=== PATIENT | male | born 1975 | race Caucasian/White ===

== ENCOUNTER → 2023-07-31 | Emergency (ER) | payer MEDICAID ==
[~2023-07-31] VITALS: Ht 195.6 cm; Wt 182.0 kg
[~2023-07-31] MED LIST: LORA-269 PO; ketorolac trometh. 30mg/ml inj. IV ONE
[2023-07-31 01:35] VITALS: TEMP 98.8
[2023-07-31 03:58] LABS: BASOPHILS % (AUTO) 0.3 % (0-1); EOSINOPHILS % (AUTO) 0 % (0-6); HEMOGLOBIN 16.5 g/dl (14.0-17.9); LYMPHOCYTES # (AUTO) 1.7 X10'3 (1.1-4.8); LYMPHOCYTES % (AUTO) 24.7 % (21-51); MEAN CORPUSCULAR HEMOGLOBIN 34.2 PG (27.0-31.0); MEAN CORPUSCULAR HGB CONC 33.7 g/dL (33.0-36.5); MEAN CORPUSCULAR VOLUME 101.3 FL (78-98); MEAN PLATELET VOLUME 7.2 FL (7.4-10.4); MONOCYTES # (AUTO) 0.6 X10'3 (0-0.9); MONOCYTES % (AUTO) 8.9 % (2-12); NEUTROPHILS # (AUTO) 4.5 X10'3 (1.8-7.7); NEUTROPHILS % (AUTO) 66.1 % (42-75); PLATELET COUNT 150 X10'3 (140-440); RED BLOOD COUNT 4.84 X10'6 (4.70-6.10); RED CELL DISTRIBUTION WIDTH 16.8 % (11.5-14.5); WHITE BLOOD COUNT 6.8 X10'3 (4.5-11.0)
[2023-07-31] MEDS: normal saline 1000ml 1,000 ML IV ONE ×2 (03:58→05:04)
[2023-07-31] MEDS: LORazepam 2 mg/ml vial IV ONE ×3 (03:58→13:06)
[2023-07-31] MEDS: thiamine 100mg/ml 2ml inj. IV ONE (03:58)
[2023-07-31 04:12] LABS: ALANINE AMINOTRANSFERASE 46 U/L (12-78); ALBUMIN 3.5 G/DL (3.4-5.0); ALBUMIN/GLOBULIN RATIO 0.9 (1.1-1.5); ALKALINE PHOSPHATASE 121 IU/L (46-116); ANION GAP 17 (8-16); ASPARTATE AMINO TRANSFERASE 48 U/L (10-37); BILIRUBIN,TOTAL 1.1 MG/DL (0.1-1.0); BLOOD UREA NITROGEN 14 MG/DL (7-18); BUN/CREATININE RATIO 8.8 (10.0-20.0); CALCIUM 7.5 MG/DL (8.5-10.1); CHLORIDE 97 MMOL/L (99-107); GLUCOSE 123 MG/DL (70-104); POTASSIUM 4.5 MMOL/L (3.5-5.1); SODIUM 135 MMOL/L (135-145); TOTAL CARBON DIOXIDE 21.3 MMOL/L (24-32); TOTAL PROTEIN 7.4 G/DL (6.4-8.2); eCRCL 73 ML/MIN; eGFR 47 ML/MIN
[2023-07-31 04:15] LABS: ETHANOL 266 MG/DL (<10); MAGNESIUM 1.7 MG/DL (1.5-2.4)
[2023-07-31] MEDS: ketorolac tromethamine 15mg/ml inj. IV ONE (05:04)
[2023-07-31] MEDS: CALCIUM GLUC 1gm/50ml NACL,iso 50 ML IV PRN (05:07)
[2023-07-31] MEDS: calcium carbonate 500mg tablet PO ONE (05:11)
[2023-07-31] MEDS: ondansetron/PF 4mg/2ml inj IV ONE (06:43)
[2023-07-31 10:03] VITALS: BP 124/72; PULSE 106; RESP 20; O2SAT 100
== END | disposition home or self-care (01) ==
LOC: ER 01:34
DX: F10.129 Alcohol abuse with intoxication, unspecified (principal); R20.0 Anesthesia of skin; R07.89 Other chest pain; Y90.9 Presence of alcohol in blood, level not specified
CPT/HCPCS: 36415; 80053; 80320; 83735; 84484; 85025; 96361; 96365; 96375; 96376; 99285; J0610; J1885; J2060; J2405; J3411; J7030

== ENCOUNTER 2024-04-20 16:52 | Inpatient (IN) | payer MEDICAID ==
[~2024-04-20] VITALS: Ht 195.6 cm; Wt 169.6 kg
[~2024-04-20 16:52] MED LIST changes: -ketorolac trometh. 30mg/ml inj. IV ONE
[2024-04-20] MEDS ORDERED: GABA300C PO (17:23)
[2024-04-20] MEDS ORDERED: ANAS1TAB10 (17:23)
[2024-04-20] MEDS ORDERED: IRBE300T26 PO (17:23)
[2024-04-20] MEDS ORDERED: DILT240T10 PO (17:23)
[2024-04-20] MEDS ORDERED: NALT50TA5 PO (17:23)
[2024-04-20] MEDS ORDERED: DULO30CA52 PO (17:23)
[2024-04-20] MEDS ORDERED: TORS10TA17 PO (17:23)
[2024-04-20] MEDS: normal saline 1000ML IV soln IVB ONE (18:18)
[2024-04-20] MEDS: LORazepam 2 mg/ml vial IV ONE ×2 (18:42→23:17)
[2024-04-20] MEDS: thiamine 100mg/ml 2ml inj. IV ONE (18:48)
[2024-04-20 19:07] LABS: BASOPHILS % (AUTO) 0.2 % (0-1); EOSINOPHILS % (AUTO) 0 % (0-6); LYMPHOCYTES # (AUTO) 0.9 X10'3 (1.1-4.8); LYMPHOCYTES % (AUTO) 9.8 % (21-51); MEAN PLATELET VOLUME 7.8 FL (7.4-10.4); MONOCYTES # (AUTO) 0.8 X10'3 (0-0.9); MONOCYTES % (AUTO) 7.9 % (2-12); NEUTROPHILS % (AUTO) 82.1 % (42-75); PLATELET COUNT 171 X10'3 (140-440); WHITE BLOOD COUNT 9.7 X10'3 (4.5-11.0)
[2024-04-20 19:11] LABS: ALANINE AMINOTRANSFERASE 56 U/L (12-78); ALBUMIN 3.7 G/DL (3.4-5.0); ALKALINE PHOSPHATASE 107 IU/L (46-116); ANION GAP 16 (8-16); ASPARTATE AMINO TRANSFERASE 120 U/L (10-37); BILIRUBIN,DIRECT 0.6 MG/DL (0-0.3); BILIRUBIN,TOTAL 1.6 MG/DL (0.1-1.0); BLOOD UREA NITROGEN 25 MG/DL (7-18); BUN/CREATININE RATIO 23.6 (10.0-20.0); CALCIUM 7.4 MG/DL (8.5-10.1); CHLORIDE 78 MMOL/L (99-107); CREATININE 1.06 MG/DL (0.60-1.10); GLUCOSE 158 MG/DL (70-104); MAGNESIUM 1.9 MG/DL (1.5-2.4); POTASSIUM 5.1 MMOL/L (3.5-5.1); TOTAL CARBON DIOXIDE 18.9 MMOL/L (24-32); TOTAL PROTEIN 7.4 G/DL (6.4-8.2); eCRCL 109 ML/MIN; eGFR 75 ML/MIN
[2024-04-20 19:17] LABS: ETHANOL 354 MG/DL (<10)
[2024-04-20 19:22] LABS: SODIUM 113 MMOL/L (135-145)
[2024-04-20 19:45] LABS: HEMATOCRIT 40.1 % (42.0-52.0); HEMOGLOBIN 14.1 g/dl (14.0-17.9); MEAN CORPUSCULAR HEMOGLOBIN 31.4 PG (27.0-31.0); MEAN CORPUSCULAR HGB CONC 35.2 g/dL (33.0-36.5); MEAN CORPUSCULAR VOLUME 89.5 FL (78-98); RED BLOOD COUNT 4.48 X10'6 (4.70-6.10)
[2024-04-20] MEDS: diazepam inj 5 MG/ML inj. IV ONE (20:10)
[2024-04-20] MEDS: ringers solution, lacted 1,000 ML IV ONE (20:37)
[2024-04-20] MEDS: ondansetron/PF 4mg/2ml inj IV ONE (20:45)
[2024-04-20 21:40] LABS: ABG BASE EXCESS -5.8 mmol/L (-2.0-3.0); ABG HCO3 15.7 mmol/L (21.0-28.0); ABG OXYGEN SATURATION 95.8 % (94.0-98.0); ABG PCO2 (T) 22.2 mmHg (35.0-48.0); ABG PH (T) 7.467 (7.350-7.450); ABG PO2 (T) 81.6 mmHg (83.0-108.0); ALLEN'S TEST POSITIVE; FCOHb 0.7 % (0.5-1.5); FHHb 4.2 % (0.0-5.0); FO2Hb 95.1 % (94.0-98.0); MODE ROOM AIR; PATIENT TEMPERATURE 36.5; TOTAL HEMOGLOBIN 14.8 G/dl (13.5-17.5)
[2024-04-20 21:51] LABS: SODIUM 113 MMOL/L (135-145)
[2024-04-20 22:00] LABS: OSMOLALITY 320 MOSM/K (280-300)
[2024-04-20] MEDS ORDERED: magnesium Cl slow-release 64mg tablet PO PRN (22:55)
[2024-04-20] MEDS ORDERED: potassium Cl 20 mEq SR tablet PO PRN ×2 (22:55)
[2024-04-20] MEDS ORDERED: acetaminophen 325mg tablet PO PRN ×2 (22:55→23:05)
[2024-04-20] MEDS ORDERED: potassium Cl 40MEQ/1/2NS 520ml 520 ML IV PRN (22:55)
[2024-04-20] MEDS ORDERED: dextrose 50%-water 50ml dispensing syringe IV PRN (22:55)
[2024-04-20] MEDS ORDERED: mag hydrox/Alum hydrox/simeth 30ml oral suspension PO PRN (22:55)
[2024-04-20] MEDS ORDERED: magnesium sulf-water 2g/50mL 50 ML IV PRN (22:55)
[2024-04-20] MEDS ORDERED: magnesium hydroxide 30ml (MOM) UD suspension PO PRN (22:55)
[2024-04-20] MEDS ORDERED: ondansetron/PF 4mg/2ml inj IV PRN (22:55)
[2024-04-20] MEDS ORDERED: magnesium sulf-water 4G/100mL 100 ML IV PRN (22:55)
[2024-04-20 23:36] LABS: HEMOGLOBIN A1C 5.8 % (4.5-6.2)
[2024-04-20 23:37] LABS: PRO BRAIN NATRIURETIC PEPTIDE 209 PG/ML (0-125)
[2024-04-20 23:41] LABS: BILIRUBIN,URINE NEGATIVE (Neg); CLARITY,URINE SLIGHTLY CLOUDY (Clear); COLOR,URINE YELLOW (Yellow); GLUCOSE, URINE NEGATIVE (Neg); KETONES,URINE TRACE mg/dl (Neg); LEUKOCYTE ESTERASE ,URINE NEGATIVE (Neg); NITRITES, URINE NEGATIVE (Neg); OCCULT BLOOD,URINE NEGATIVE (Neg); PH,URINE 5.5 (4.8-8.0); PROTEIN,URINE NEGATIVE (Neg); UROBILINOGEN,URINE 0.2 E.U/dL (0.2-1.0)
[2024-04-20 23:44] LABS: UA COLLECTION TYPE CLN CATCH MIDSTREAM
[2024-04-20 23:48] LABS: APTT 29 SECONDS (22-32); INR 1.1 INR; PROTHROMBIN TIME 11.8 SECONDS (9.0-12.0)
[2024-04-20 23:49] LABS: BACTERIA,URINE FEW /HPF (Neg); HYALINE CASTS 0-3 /LPF (NEGATIVE); MUCUS STRANDS FEW /LPF (Neg); RBC,URINE NONE SEEN /HPF (0-2); SQUAMOUS EPITHELIAL CELL,UR FEW /LPF (FEW); URIC ACID CRYSTALS 4+ /HPF (NEGATIVE); WBC,URINE NONE SEEN /HPF (0-4)
[2024-04-20 23:54] LABS: CHLORIDE,URINE RANDOM < 50 MEQ/L; SODIUM,URINE RANDOM 18 MEQ/L
[2024-04-20 23:54] LABS: LIPASE 60 U/L (16-77)
[2024-04-20 23:58] LABS: URINE AMPHETAMINE SCREEN NEGATIVE (Neg); URINE BARBITUATE SCREEN NEGATIVE (Neg); URINE BENZODIAZEPINES SCREEN NEGATIVE (Neg); URINE CANNABINOID SCREEN NEGATIVE (Neg); URINE COCAINE SCREEN NEGATIVE (Neg); URINE METHADONE SCREEN NEGATIVE (Neg); URINE OPIATE SCREEN NEGATIVE (Neg); URINE PHENCYCLIDINE SCREEN NEGATIVE (Neg)
[2024-04-21] VITALS (28 sets, daily range): BP systolic 97–178; BP diastolic 52–90; PULSE 59–114; RESP 14–26; O2SAT 95–98
[2024-04-21 00:06] LABS: OSMOLALITY UA 550 MOSM/K (50-1400)
[2024-04-21] MEDS: LORazepam 2 mg/ml vial IV PRN ×2 (01:00→03:14)
[2024-04-21 01:29] LABS: ALBUMIN 3.6 G/DL (3.4-5.0); ANION GAP 16 (8-16); BLOOD UREA NITROGEN 23 MG/DL (7-18); BUN/CREATININE RATIO 20.7 (10.0-20.0); CALCIUM 7.8 MG/DL (8.5-10.1); CHLORIDE 80 MMOL/L (99-107); CREATININE 1.11 MG/DL (0.60-1.10); GLUCOSE 131 MG/DL (70-104); POTASSIUM 5.3 MMOL/L (3.5-5.1); TOTAL CARBON DIOXIDE 18.5 MMOL/L (24-32); eCRCL 104 ML/MIN; eGFR 71 ML/MIN
[2024-04-21] MEDS: LidoCAINE 2% Topical Jelly 11mL syringe (UROJET) TOP ONE (01:30)
[2024-04-21 01:38] LABS: ACETAMINOPHEN < 2.0 UG/ML (10-30); SODIUM 114 MMOL/L (135-145)
[2024-04-21 01:56] LABS: OSMOLALITY 291 MOSM/K (280-300)
[2024-04-21] MEDS: sodium chloride 3% IV.soln 500 ML IV SCH (03:01)
[2024-04-21] MEDS: LIDOcaine 1% W/epiNEPHrine 1:100,000 20ml vial SQ ONE (03:01)
[2024-04-21] MEDS: heparin, porcine 5000 units/ml vial SQ SCH (03:22)
[2024-04-21] MEDS: haloperidol lactate 5mg/ml inj IM PRN (03:28)
[2024-04-21 03:44] LABS: BASOPHILS % (AUTO) 0.1 % (0-1); EOSINOPHILS % (AUTO) 0 % (0-6); HEMATOCRIT 40.1 % (42.0-52.0); HEMOGLOBIN 14.3 g/dl (14.0-17.9); LYMPHOCYTES # (AUTO) 0.9 X10'3 (1.1-4.8); LYMPHOCYTES % (AUTO) 9.6 % (21-51); MEAN CORPUSCULAR HEMOGLOBIN 32.7 PG (27.0-31.0); MEAN CORPUSCULAR HGB CONC 35.5 g/dL (33.0-36.5); MEAN CORPUSCULAR VOLUME 92.1 FL (78-98); MEAN PLATELET VOLUME 8.1 FL (7.4-10.4); MONOCYTES # (AUTO) 0.8 X10'3 (0-0.9); MONOCYTES % (AUTO) 8.7 % (2-12); NEUTROPHILS # (AUTO) 7.5 X10'3 (1.8-7.7); NEUTROPHILS % (AUTO) 81.6 % (42-75); PLATELET COUNT 129 X10'3 (140-440); RED BLOOD COUNT 4.36 X10'6 (4.70-6.10); RED CELL DISTRIBUTION WIDTH 14.8 % (11.5-14.5); WHITE BLOOD COUNT 9.2 X10'3 (4.5-11.0)
[2024-04-21 03:48] LABS: INR 1.1 INR; PROTHROMBIN TIME 11.7 SECONDS (9.0-12.0)
[2024-04-21 03:55] LABS: ALANINE AMINOTRANSFERASE 60 U/L (12-78); ALBUMIN 3.5 G/DL (3.4-5.0); ALKALINE PHOSPHATASE 105 IU/L (46-116); ANION GAP 12 (8-16); ASPARTATE AMINO TRANSFERASE 141 U/L (10-37); BILIRUBIN,TOTAL 1.8 MG/DL (0.1-1.0); BLOOD UREA NITROGEN 20 MG/DL (7-18); BUN/CREATININE RATIO 21.1 (10.0-20.0); CALCIUM 7.7 MG/DL (8.5-10.1); CHLORIDE 82 MMOL/L (99-107); CHOL/HDL RATIO 1.5 (0.00-4.99); CHOLESTEROL 140 MG/DL (0-200); CREATININE 0.95 MG/DL (0.60-1.10); GLUCOSE 111 MG/DL (70-104); HDL CHOLESTEROL 92 MG/DL (35-60); LDL CHOLESTEROL 36 MG/DL (50-100); MAGNESIUM 1.7 MG/DL (1.5-2.4); PHOSPHORUS 2.2 MG/DL (2.3-4.5); POTASSIUM 5.5 MMOL/L (3.5-5.1); TOTAL CARBON DIOXIDE 21.3 MMOL/L (24-32); TRIGLYCERIDES 101 MG/DL (20-135); eCRCL 121 ML/MIN; eGFR 85 ML/MIN
[2024-04-21 04:15] LABS: SODIUM 115 MMOL/L (135-145)
[2024-04-21] MEDS: docusate sod 100mg capsule PO SCH (07:30)
[2024-04-21] MEDS: thiamine 100mg/ml 2ml inj. IV SCH (07:30)
[2024-04-21] MEDS: K and/or MAG REPLACEMENT MC SCH (08:00)
[2024-04-21] MEDS: folic acid 1mg/0.2ml inj IV SCH (08:00)
[2024-04-21] MEDS: MVI, adult No.4 with vit. K 10 ML in dextrose 5% water 500ml 500 ML IV SCH (12:48)
[2024-04-21] MEDS: dexmedetomidin/NS 400mcg/100ml 100 ML IV PRN (13:59)
[2024-04-21 20:15] LABS: ANION GAP 6 (8-16); BLOOD UREA NITROGEN 13 MG/DL (7-18); BUN/CREATININE RATIO 14.1 (10.0-20.0); CHLORIDE 85 MMOL/L (99-107); CREATININE 0.92 MG/DL (0.60-1.10); GLUCOSE 131 MG/DL (70-104); POTASSIUM 4.9 MMOL/L (3.5-5.1); TOTAL CARBON DIOXIDE 24.9 MMOL/L (24-32); eCRCL 125 ML/MIN; eGFR 88 ML/MIN
[2024-04-21 20:29] LABS: SODIUM 116 MMOL/L (135-145)
[2024-04-22] VITALS (25 sets, daily range): BP systolic 78–153; BP diastolic 40–91; PULSE 55–88; RESP 9–29; O2SAT 92–99
[2024-04-22 00:35] LABS: BASOPHILS % (AUTO) 0.2 % (0-1); NEUTROPHILS # (AUTO) 3.6 X10'3 (1.8-7.7); PLATELET COUNT 72 X10'3 (140-440)
[2024-04-22 00:37] LABS: EOSINOPHILS % (AUTO) 0.2 % (0-6); HEMATOCRIT 36.2 % (42.0-52.0); HEMOGLOBIN 12.8 g/dl (14.0-17.9); LYMPHOCYTES # (AUTO) 0.5 X10'3 (1.1-4.8); LYMPHOCYTES % (AUTO) 9.8 % (21-51); MEAN CORPUSCULAR HEMOGLOBIN 32.8 PG (27.0-31.0); MEAN CORPUSCULAR HGB CONC 35.4 g/dL (33.0-36.5); MEAN CORPUSCULAR VOLUME 92.5 FL (78-98); MEAN PLATELET VOLUME 8.2 FL (7.4-10.4); MONOCYTES # (AUTO) 0.5 X10'3 (0-0.9); MONOCYTES % (AUTO) 11.6 % (2-12); NEUTROPHILS % (AUTO) 78.2 % (42-75); RED BLOOD COUNT 3.92 X10'6 (4.70-6.10); RED CELL DISTRIBUTION WIDTH 14.4 % (11.5-14.5); WHITE BLOOD COUNT 4.6 X10'3 (4.5-11.0)
[2024-04-22 00:46] LABS: INR 1.1 INR; PROTHROMBIN TIME 11.9 SECONDS (9.0-12.0)
[2024-04-22 00:49] LABS: ANION GAP 7 (8-16); BLOOD UREA NITROGEN 14 MG/DL (7-18); CHLORIDE 87 MMOL/L (99-107); CREATININE 0.98 MG/DL (0.60-1.10); GLUCOSE 126 MG/DL (70-104); POTASSIUM 4.8 MMOL/L (3.5-5.1); TOTAL CARBON DIOXIDE 24.5 MMOL/L (24-32)
[2024-04-22 00:50] LABS: ALANINE AMINOTRANSFERASE 55 U/L (12-78); ALBUMIN 3.2 G/DL (3.4-5.0); ALBUMIN/GLOBULIN RATIO 0.9 (1.1-1.5); ALKALINE PHOSPHATASE 98 IU/L (46-116); ASPARTATE AMINO TRANSFERASE 103 U/L (10-37); BILIRUBIN,TOTAL 2.3 MG/DL (0.1-1.0); BUN/CREATININE RATIO 14.3 (10.0-20.0); CALCIUM 7.7 MG/DL (8.5-10.1); PHOSPHORUS 2.7 MG/DL (2.3-4.5); TOTAL PROTEIN 6.6 G/DL (6.4-8.2); eCRCL 117 ML/MIN; eGFR 82 ML/MIN
[2024-04-22 01:54] LABS: SODIUM 118 MMOL/L (135-145)
[2024-04-22] MEDS: HALLS - SOOTHE MENTHOL 1.8 MG cough drop LOZENGE MM PRN (11:02)
[2024-04-22] MEDS: acetaminophen 325mg tablet PO PRN (11:19)
[2024-04-22 12:08] LABS: STREP A SCREEN NEGATIVE (Neg)
[2024-04-22] MEDS: chlordiazePOXIDE 25mg capsule PO SCH (13:19)
[2024-04-22] MEDS: ondansetron/PF 4mg/2ml inj IV PRN (15:12)
[2024-04-22] MEDS: morphine 2 MG/ML inj. syringe IV PRN (20:45)
[2024-04-22] MEDS: gabapentin 300mg capsule PO SCH (20:46)
[2024-04-23] VITALS (24 sets, daily range): BP systolic 111–164; BP diastolic 54–106; PULSE 52–110; RESP 9–19; O2SAT 96–99
[2024-04-23] MEDS: morphine 4 MG/ML inj SYRINge IV PRN (00:15)
[2024-04-23 02:26] LABS: BASOPHILS % (AUTO) 0.3 % (0-1); EOSINOPHILS # (AUTO) 0.1 X10'3 (0-0.9); EOSINOPHILS % (AUTO) 1.2 % (0-6); HEMATOCRIT 38.3 % (42.0-52.0); HEMOGLOBIN 13.5 g/dl (14.0-17.9); MEAN CORPUSCULAR HEMOGLOBIN 33.1 PG (27.0-31.0); MEAN CORPUSCULAR HGB CONC 35.2 g/dL (33.0-36.5); MEAN PLATELET VOLUME 8.9 FL (7.4-10.4); MONOCYTES # (AUTO) 0.7 X10'3 (0-0.9); MONOCYTES % (AUTO) 10.9 % (2-12); NEUTROPHILS # (AUTO) 4.6 X10'3 (1.8-7.7); NEUTROPHILS % (AUTO) 71.6 % (42-75); PLATELET COUNT 79 X10'3 (140-440); RED BLOOD COUNT 4.07 X10'6 (4.70-6.10); RED CELL DISTRIBUTION WIDTH 14.5 % (11.5-14.5); WHITE BLOOD COUNT 6.4 X10'3 (4.5-11.0)
[2024-04-23 02:30] LABS: INR 1.1 INR; PROTHROMBIN TIME 11.5 SECONDS (9.0-12.0)
[2024-04-23 02:35] LABS: ALANINE AMINOTRANSFERASE 67 U/L (12-78); ALBUMIN 3.4 G/DL (3.4-5.0); ALBUMIN/GLOBULIN RATIO 0.9 (1.1-1.5); ALKALINE PHOSPHATASE 102 IU/L (46-116); ANION GAP 9 (8-16); ASPARTATE AMINO TRANSFERASE 89 U/L (10-37); BILIRUBIN,TOTAL 1.3 MG/DL (0.1-1.0); BLOOD UREA NITROGEN 15 MG/DL (7-18); BUN/CREATININE RATIO 16.5 (10.0-20.0); CALCIUM 8.4 MG/DL (8.5-10.1); CHLORIDE 96 MMOL/L (99-107); CREATININE 0.91 MG/DL (0.60-1.10); GLUCOSE 85 MG/DL (70-104); MAGNESIUM 2.1 MG/DL (1.5-2.4); PHOSPHORUS 2.7 MG/DL (2.3-4.5); POTASSIUM 4.1 MMOL/L (3.5-5.1); SODIUM 129 MMOL/L (135-145); TOTAL CARBON DIOXIDE 23.9 MMOL/L (24-32); TOTAL PROTEIN 7.2 G/DL (6.4-8.2); eCRCL 126 ML/MIN; eGFR 89 ML/MIN
[2024-04-23] MEDS: duloxetine 30mg CAPSULE.DR PO SCH (07:48)
[2024-04-23] MEDS: losartan 50mg tablet PO SCH (07:48)
[2024-04-23] MEDS: diltiazem CD 120mg capsule (once-daily) PO SCH (07:48)
[2024-04-23] MEDS: fondaparinux 2.5 MG/0.5 ML syringe SUBCUT SCH (07:49)
[2024-04-23] MEDS ORDERED: Torsemide 10 MG TAB PO SCH (08:00)
[2024-04-23] MEDS: furosemide 20MG tablet PO SCH (09:19)
[2024-04-23] MEDS: azithromycin/NS 500mg/250ml 250 ML IV SCH (13:03)
[2024-04-24] VITALS (11 sets, daily range): BP systolic 92–133; BP diastolic 47–83; PULSE 61–117; RESP 10–19; TEMP 97.7–99; O2SAT 96–100
[2024-04-24 03:32] LABS: BASOPHILS # (AUTO) 0.1 X10'3 (0-0.2); BASOPHILS % (AUTO) 0.8 % (0-1); EOSINOPHILS # (AUTO) 0.2 X10'3 (0-0.9); EOSINOPHILS % (AUTO) 2.5 % (0-6); HEMOGLOBIN 12.6 g/dl (14.0-17.9); LYMPHOCYTES # (AUTO) 0.8 X10'3 (1.1-4.8); MEAN CORPUSCULAR HEMOGLOBIN 34.8 PG (27.0-31.0); MEAN CORPUSCULAR VOLUME 99.5 FL (78-98); MEAN PLATELET VOLUME 7.2 FL (7.4-10.4); MONOCYTES # (AUTO) 0.8 X10'3 (0-0.9); MONOCYTES % (AUTO) 10.5 % (2-12); NEUTROPHILS % (AUTO) 76.2 % (42-75); PLATELET COUNT 199 X10'3 (140-440); RED BLOOD COUNT 3.62 X10'6 (4.70-6.10); RED CELL DISTRIBUTION WIDTH 13.2 % (11.5-14.5); WHITE BLOOD COUNT 7.9 X10'3 (4.5-11.0)
[2024-04-24 03:41] LABS: INR 1.1 INR; PROTHROMBIN TIME 11.7 SECONDS (9.0-12.0)
[2024-04-24 03:46] LABS: ALANINE AMINOTRANSFERASE 25 U/L (12-78); ALBUMIN 2.5 G/DL (3.4-5.0); ALBUMIN/GLOBULIN RATIO 0.6 (1.1-1.5); ALKALINE PHOSPHATASE 55 IU/L (46-116); ANION GAP 7 (8-16); ASPARTATE AMINO TRANSFERASE 76 U/L (10-37); BILIRUBIN,TOTAL 0.7 MG/DL (0.1-1.0); BLOOD UREA NITROGEN 6 MG/DL (7-18); BUN/CREATININE RATIO 7.2 (10.0-20.0); CALCIUM 8.1 MG/DL (8.5-10.1); CHLORIDE 107 MMOL/L (99-107); CREATININE 0.83 MG/DL (0.60-1.10); GLUCOSE 95 MG/DL (70-104); MAGNESIUM 1.9 MG/DL (1.5-2.4); PHOSPHORUS 2.8 MG/DL (2.3-4.5); POTASSIUM 3.8 MMOL/L (3.5-5.1); SODIUM 140 MMOL/L (135-145); TOTAL CARBON DIOXIDE 26.1 MMOL/L (24-32); TOTAL PROTEIN 6.6 G/DL (6.4-8.2); eCRCL 139 ML/MIN; eGFR > 90 ML/MIN
[2024-04-24 15:13] LABS: ALBUMIN 3.2 G/DL (3.4-5.0); ANION GAP 6 (8-16); BLOOD UREA NITROGEN 16 MG/DL (7-18); BUN/CREATININE RATIO 14.8 (10.0-20.0); CALCIUM 7.9 MG/DL (8.5-10.1); CHLORIDE 97 MMOL/L (99-107); CREATININE 1.08 MG/DL (0.60-1.10); GLUCOSE 104 MG/DL (70-104); POTASSIUM 3.9 MMOL/L (3.5-5.1); SODIUM 132 MMOL/L (135-145); TOTAL CARBON DIOXIDE 28.8 MMOL/L (24-32); eCRCL 107 ML/MIN; eGFR 73 ML/MIN
[2024-04-24] MEDS: sodium chloride 1gm tablet PO SCH (19:13)
[2024-04-25 02:00] VITALS: BP 114/76; PULSE 79; RESP 16; TEMP 97.8; O2SAT 99
[2024-04-25 06:06] LABS: ALANINE AMINOTRANSFERASE 75 U/L (12-78); ALBUMIN 3.4 G/DL (3.4-5.0); ALBUMIN/GLOBULIN RATIO 0.9 (1.1-1.5); ALKALINE PHOSPHATASE 118 IU/L (46-116); ANION GAP 7 (8-16); ASPARTATE AMINO TRANSFERASE 51 U/L (10-37); BILIRUBIN,TOTAL 0.9 MG/DL (0.1-1.0); BLOOD UREA NITROGEN 15 MG/DL (7-18); BUN/CREATININE RATIO 15.3 (10.0-20.0); CALCIUM 8.2 MG/DL (8.5-10.1); CHLORIDE 99 MMOL/L (99-107); CREATININE 0.98 MG/DL (0.60-1.10); GLUCOSE 107 MG/DL (70-104); MAGNESIUM 1.8 MG/DL (1.5-2.4); PHOSPHORUS 3.7 MG/DL (2.3-4.5); SODIUM 134 MMOL/L (135-145); TOTAL CARBON DIOXIDE 27.8 MMOL/L (24-32); TOTAL PROTEIN 7.1 G/DL (6.4-8.2); eCRCL 117 ML/MIN; eGFR 82 ML/MIN
[2024-04-25 06:13] LABS: BASOPHILS % (AUTO) 0.6 % (0-1); EOSINOPHILS # (AUTO) 0.2 X10'3 (0-0.9); EOSINOPHILS % (AUTO) 3.4 % (0-6); HEMATOCRIT 38.8 % (42.0-52.0); HEMOGLOBIN 13.2 g/dl (14.0-17.9); LYMPHOCYTES # (AUTO) 1.4 X10'3 (1.1-4.8); LYMPHOCYTES % (AUTO) 27.1 % (21-51); MEAN CORPUSCULAR HEMOGLOBIN 32.4 PG (27.0-31.0); MEAN CORPUSCULAR HGB CONC 34.1 g/dL (33.0-36.5); MEAN CORPUSCULAR VOLUME 95.1 FL (78-98); MEAN PLATELET VOLUME 8.2 FL (7.4-10.4); MONOCYTES # (AUTO) 0.5 X10'3 (0-0.9); MONOCYTES % (AUTO) 10.8 % (2-12); NEUTROPHILS # (AUTO) 2.9 X10'3 (1.8-7.7); NEUTROPHILS % (AUTO) 58.1 % (42-75); PLATELET COUNT 115 X10'3 (140-440); RED BLOOD COUNT 4.08 X10'6 (4.70-6.10); RED CELL DISTRIBUTION WIDTH 14.9 % (11.5-14.5)
[2024-04-25 07:00] VITALS: BP 155/90; PULSE 82; RESP 16; TEMP 98.2; O2SAT 100
[2024-04-25 08:00] VITALS: RESP 16; O2SAT 100
[2024-04-25] MEDS: multivitamins, therapeutics tablet PO SCH (08:27)
[2024-04-25] MEDS: azithromycin 250mg tablet PO SCH (08:28)
[2024-04-25] MEDS: folic acid 1mg tablet PO SCH (08:28)
[2024-04-25] MEDS: thiamine 100mg tablet PO SCH (08:30)
[2024-04-25 11:00] VITALS: BP 116/60; PULSE 78; RESP 16; TEMP 97.8; O2SAT 95
[2024-04-25] MEDS ORDERED: thiamine tablet PO (12:35)
[2024-04-25] MEDS ORDERED: AZI25OT PO (12:35)
[2024-04-25] MEDS ORDERED: FOLI1TAB27 PO (12:35)
[2024-04-25] MEDS ORDERED: MULT-25 PO (12:35)
== END 2024-04-25 14:50 | disposition home or self-care (01) | DRG 426 ==
LOC: ER 16:54 → ED HOLD 23:24 → CICU 2S 04-21 03:41 → PCU 3S 04-24 04:01
PROVIDERS: ADMIT Internal Medicine Critical Care Medicine; ATTEND Internal Medicine Critical Care Medicine
DX: E87.1 Hypo-osmolality and hyponatremia (principal); E87.4 Mixed disorder of acid-base balance; D69.6 Thrombocytopenia, unspecified; E83.39 Other disorders of phosphorus metabolism; E83.51 Hypocalcemia; E86.0 Dehydration; Z68.41 Body mass index [BMI] 40.0-44.9, adult; Z20.822 Contact with and (suspected) exposure to COVID-19; I48.91 Unspecified atrial fibrillation; E66.01 Morbid (severe) obesity due to excess calories; F10.129 Alcohol abuse with intoxication, unspecified; F10.139 Alcohol abuse with withdrawal, unspecified; I10 Essential (primary) hypertension; Y90.8 Blood alcohol level of 240 mg/100 ml or more; F41.9 Anxiety disorder, unspecified; J02.0 Streptococcal pharyngitis; E87.5 Hyperkalemia; G47.30 Sleep apnea, unspecified; G47.33 Obstructive sleep apnea (adult) (pediatric); E87.8 Other disorders of electrolyte and fluid balance, not elsewhere classified
CPT/HCPCS: 36415; 36600; 70450; 71045; 80048; 80053; 80061; 80076; 80305; 80320; 80329; 81001; 82436; 82693; 82803; 82948; 83036; 83605; 83690; 83735; 83880; 83930; 83935; 84100; 84133; 84295; 84300; 84484; 85018; 85025; 85610; 85730; 87077; 87081; 87502; 87503; 87811; 87880; 92508; 92616; 93005; 94660; 94760; 97116; 97161; 97530; 99291; A4314; A4333; A4620; A5200; A6250; A6258; A6449; A6590; C1751; G0378; J0456; J1630; J1644; J1652; J2060; J2270; J2405; J3360; J3411; J3490; J7030; J7040; J7060; J7120; J7131

== ENCOUNTER 2024-09-27 16:30 | Emergency (ER) | payer MEDICAID ==
[~2024-09-27] VITALS: Ht 195.6 cm; Wt 176.0 kg
[~2024-09-27 16:30] MED LIST changes: +AZI25OT PO; +DILT240T10 PO; +DULO30CA52 PO; +FOLI1TAB27 PO; +IRBE300T26 PO; +MULT-25 PO; +NALT50TA5 PO; +TORS10TA17 PO; +thiamine tablet PO
--- NOTE | 2024-09-27 17:19 | RADIOLOGY REPORT ---
CHEST RADIOGRAPH Indication: Cough/SOB Technique: Frontal and lateral view of the chest was obtained Comparison: None FINDINGS: Lines and Tubes: None Lungs: No focal consolidation. No effusion. No pneumothorax. Cardiomediastinal contours: Unremarkable Bones: No acute osseous abnormality. IMPRESSION: 1. No evidence of acute disease.
--- NOTE | 2024-09-27 17:28 | Physician Documentation ---
History of Present Illness ~ Chief Complaint: Leg Pain Stated Complaint: LEG PAIN Time Seen by MD: 16:39 Primary Medical Doctor: ricardo kemp [facility] This is a 49-year-old male who presents with two days of left lower extremity swelling, erythema, and tenderness, patient reports that pain extends from his left calf into his groin. Patient additionally reports feeling of general malaise for approximately the last three days with cough, shortness of breath, fever, and lightheadedness. Patient reports no chest pain. Patient reports no history of blood clots or CHF. Patient reports lightheadedness is worse when he is sitting up or ambulating. Tetanus witin 5 years: No Medication Reconciliation Allergies: Coded Allergies: heparin (Verified Allergy, Severe, TRES; DROP IN PLTS, 04/22/24) 04/2024: PLT DROPPED FROM 129 TO 72 AFTER STARTING HEP SQ Scheduled Azithromycin (Zithromax), 500 MG PO DAILY Cephalexin*Monohydrate* (Keflex*), 1 CAP PO QID Clindamycin (Cleocin ), 3 CAP PO Q8H Diltiazem HCl (Matzim LA), 1 TAB PO DAILY, (Reported) Duloxetine HCl (Duloxetine HCl), 1 CAP PO DAILY, (Reported) Folic Acid* (Folic Acid*), 1 MG PO DAILY Irbesartan (Irbesartan), 1 TAB PO DAILY, (Reported) Multivitamin with Folic Acid (Thera Tablet), 1 EACH PO DAILY Naltrexone Hcl (Naltrexone Hcl), 50 MG PO DAILY, (Reported) Torsemide (Torsemide), 10 MG PO DAILY, (Reported) [thiamine tablet], 100 MG PO DAILY Scheduled PRN Lorazepam (Ativan), 1 TAB PO Q12H PRN PRN for anxiety Past Medical History Past Medical History: Atrial Fibrillation Past Surgical History: no surgical history Alcohol Use: Heavy Drug Use: none Physical Exam Vital Signs: Temperature: 97.7, Source: Temporal, Heart Rate: 107, Respiratory Rate: 16, BP: 144/89, Pulse Oximetry: 96, Weight: 176.000 Progress Results/Orders Results/Orders Orders - LIGIA DOMINGUEZ Vl Venous (09/27/24 16:48) Chest,Two Views (09/27/24 16:48) Culture Blood (09/27/24 17:34) Orthostatic Vs (09/27/24 ) Gait Test (09/27/24 19:31) Completed Orders - LIGIA DOMINGUEZ [employer] Cbc/Diff (09/27/24 16:48) CMP (09/27/24 16:48) Vl Venous (09/27/24 16:48) Chest,Two Views (09/27/24 16:48) Electrocardiogram (09/27/24 16:48) Lacticsepsis (09/27/24 17:34) Normal Saline 1000ml (Sodium Chloride 10 (09/27/24 18:00) Cefazolin 2gm/D5w 100ml (Cefazolin 2gm/1 (09/27/24 18:15) Cefazolin 2gm In Dextrose, Iso (Cefazoli (09/27/24 18:19) Vital Signs 09/27/24 09/27/24 09/27/24 09/27/24 16:37 16:44 18:01 18:54 Temp 97.7 Pulse 104 107 86 74 Resp 16 16 15 17 B/P (MAP) 127/60 144/89 (107) 113/61 (78) 115/55 (75) Pulse Ox 98 96 96 96 09/27/24 09/27/24 09/27/24 09/27/24 19:46 19:48 19:49 20:18 Temp 97.7 Pulse 81 90 81 89 Resp 18 B/P (MAP) 127/61 107/61 118/85 106/55 Pulse Ox 99 Laboratory Tests Test 09/27/24 17:56 White Blood Count 14.6 H Red Blood Count 4.57 L Hemoglobin 14.9 Hematocrit 42.5 Mean Corpuscular Volume 93.0 Mean Corpuscular Hemoglobin 32.5 H Mean Corpuscular Hemoglobin Concent 34.9 Red Cell Distribution Width 12.5 Platelet Count 201 Mean Platelet Volume 8.4 Neutrophils (%) (Auto) 87.9 H Lymphocytes (%) (Auto) 5.8 L Monocytes (%) (Auto) 5.9 Eosinophils (%) (Auto) 0.2 Basophils (%) (Auto) 0.2 Neutrophils # (Auto) 12.8 H Lymphocytes # (Auto) 0.8 L Monocytes # (Auto) 0.9 Eosinophils # (Auto) 0.0 Basophils # (Auto) 0.0 CBC Comment Sodium Level 137 Potassium Level 3.8 Chloride Level 103 Carbon Dioxide Level 23.9 L Anion Gap 10 Blood Urea Nitrogen 23 H Creatinine 1.95 H Estimated GFR/1.73 m2 37 BUN/Creatinine Ratio 11.8 Glucose Level 121 H Lactic Acid Level 1.7 Calcium Level 8.9 Total Bilirubin 1.1 H Aspartate Amino Transf (AST/SGOT) 34 Alanine Aminotransferase (ALT/SGPT) 42 Alkaline Phosphatase 84 Total Protein 7.5 Albumin 3.3 L Globulin 4.2 Albumin/Globulin Ratio 0.8 L Chemistry Comments Microbiology Date/Time Source Procedure Growth Status 09/27/24 17:56 Blood Iv Start Blood Culture - Preliminary NEGATIVE (LESS THAN 24 HOURS) Resulted EKG/XRAY/CT/US/VASC/MRI EKG : Additional Comment EKG at 1813 interpreted by myself as: sinus rhythm at a rate of 80, normal axis deviation, no ST-elevation or depression Chest X-Ray : Additional Comments CHEST RADIOGRAPH Indication: Cough/SOB Technique: Frontal and lateral view of the chest was obtained Comparison: None FINDINGS: Lines and Tubes: None Lungs: No focal consolidation. No effusion. No pneumothorax. Cardiomediastinal contours: Unremarkable Bones: No acute osseous abnormality. IMPRESSION: 1. No evidence of acute disease. Electronically Signed by:NIKOLE JEREZ MD Date & Time: 09/27/241716 Dictated by: NIKOLE JEREZ MD Dictation date and time: 09/27/241716 I have reviewed and agree with the radiology report. I have reviewed and interpreted the imaging as: No focal consolidation or pneum othorax Vascular : Impression Procedure: [facility] Study Date and Requested Time: 09/27/2024 05:12 PM History: Left lower extremity pain/swelling Comparison: None Technique: Multiple high resolution schreiber-scale images with and without compression obtained of the left lower extremity veins, including the common femoral vein, deep femoral vein, proximal mid and distal superficial femoral vein, and popliteal vein. Additional limited images of the greater saphenous vein also obtained. Augmentation performed as indicated. Color and spectral doppler flow images obtained as indicated. Findings: No visible intraluminal venous thrombus. No evidence of incompressibility or abnormal color or spectral Doppler flow visualized in the left lower extremity veins including, the common femoral vein, deep femoral vein, proximal mid and distal superficial femoral vein, and popliteal vein. Greater saphenous vein grossly unremarkable. Left inguinal prominent lymph node measuring up to 1.2 cm in short axis which is most likely reactive. Impression: No sonographic evidence of left lower extremity deep venous thrombosis. The right Common femoral vein is patent. Dictated by:KRYSTAL PATEL DO Dictation date and time:09/27/241755 Electronically Signed by: KRYSTAL PATEL DO Date and Time: 09/27/241755 Medical Decision Making Findings This 49-year-old male presented with pain and swelling to his left lower leg with pain extending into his groin for the past two days along with proximally three days of cough, fever, general malaise, lightheadedness and shortness of breath. Physical exam of the left leg demonstrated erythema and swelling with tenderness to palpation was consistent with cellulitis though could not rule out DVT therefore an ultrasound of the left leg was obtained, the ultrasound did not demonstrate evidence of DVT. Due to patient's report of the cough and shortness of breath with the chest x-ray was obtained and it was reassuring this did not demonstrate evidence of pneumonia or pneumothorax. Cough symptoms are consistent with a URI. EKG was obtained and did not demonstrate significant arrhythmia or evidence of infarction or ischemia. Lab work obtained and notable for elevated white blood cell count which is consistent with cellulitis diagnosis, remainder of labs did demonstrate some evidence of dehydration though were otherwise without significant abnormality. Patient's vital signs demonstrated some orthostatic hypotension that was consistent with the patient's report of lightheadedness when ambulating, though vital signs stabilized after patient received a IV fluid bolus and began drinking fluids therefore I believe orthostatic hypotension related to dehydration. Due to mild tachycardia and evidence of infection along with mild hypotension empiric IV antibiotics were initiated while waiting lab results though as lab results were relatively benign patient will be switch to oral antibiotic treatment. Remainder of patient's exam was benign and he is appropriate for outpatient follow up, I had a discussion with patient about the option for admission to manage his cellulitis though he did have a preference for outpatient management and with shared decision-making will be discharged with careful return precautions and home care instructions which she verbalized understanding of. General Diff Dx:Considerations: Include: Other (DVT, abscess, CHF, lymphedema, pneumonia, [place], abrasion, allergic reaction, contact dermatitis, atopic dermatitis) Departure Time of Disposition: 20:09 Disposition: 01 HOME / SELF CARE / HOMELESS Impression: Primary Impression: Cellulitis Qualified Codes: L03.116 - Cellulitis of left lower limb Additional Impressions: URI (upper respiratory infection) Qualified Codes: J06.9 - Acute upper respiratory infection, unspecified Dehydration Condition: Improved Discharge Instructions: Cellulitis, Adult, [id number] Additional Instructions: Please take the antibiotics as prescribed. Stay well hydrated. You may use ibuprofen and or Tylenol as directed by [id number] packaging for pain. Please follow up with your primary care provider or the [facility] in the next few days for recheck. Please return to the emergency department for any new or wor sening concerning symptoms including but not limited to difficulty breathing, chest pain, worsening swelling to your leg, or if you develop a fever over 100.4 that does not lower with ibuprofen or Tylenol. Referrals: NO PRIMARY CARE PROVIDER (PCP) Prescriptions Clindamycin (Cleocin ) 150 Mg Capsule 3 CAP PO Q8H, #63 CAP Prov: LIGIA DOMINGUEZ 09/27/24 Cephalexin*Monohydrate* (Keflex*) 500 Mg Capsule 1 CAP PO QID for 7 Days, #28 CAP Prov: LIGIA DOMINGUEZP 09/27/24 Education Educated: Patient Educated regarding: diagnosis, treatment, prognosis, need for follow up Signature Scribe Signature: No scribe Attestation: The note accurately reflects work and decisions made by me.BRIAN Flynn 09/28/24 02:53 LIGIA DOMINGUEZ September 27, 2024 17:28
--- NOTE | 2024-09-27 17:58 | VASCULAR REPORT ---
Procedure: [facility] Study Date and Requested Time: 09/27/2024 05:12 PM History: Left lower extremity pain/swelling Comparison: None Technique: Multiple high resolution schreiber-scale images with and without compression obtained of the le ft lower extremity veins, including the common femoral vein, deep femoral vein, proximal mid and dist al superficial femoral vein, and popliteal vein. Additional limited images of the greater saphenous v ein also obtained. Augmentation performed as indicated. Color and spectral doppler flow images obtain ed as indicated. Findings: No visible intraluminal venous thrombus. No evidence of incompressibility or abnormal color or spectr al Doppler flow visualized in the left lower extremity veins including, the common femoral vein, deep femoral vein, proximal mid and distal superficial femoral vein, and popliteal vein. Greater saphenou s vein grossly unremarkable. Left inguinal prominent lymph node measuring up to 1.2 cm in short axis which is most likely reactive . Impression: No sonographic evidence of left lower extremity deep venous thrombosis. The right Common femoral vein is patent.
[2024-09-27] MEDS: normal saline 1000ML IV soln IVB ONE (18:00)
[2024-09-27] MEDS ORDERED: cefazolin 2gm/D5W 100mL 100 ML IV ONE (18:15)
--- NOTE | 2024-09-27 18:16 | ELECTROCARDIOGRAPH REPORT ---
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
[2024-09-27 18:32] LABS: BASOPHILS % (AUTO) 0.2 % (0-1); EOSINOPHILS % (AUTO) 0.2 % (0-6); HEMATOCRIT 42.5 % (42.0-52.0); HEMOGLOBIN 14.9 g/dl (14.0-17.9); LYMPHOCYTES # (AUTO) 0.8 X10'3 (1.1-4.8); LYMPHOCYTES % (AUTO) 5.8 % (21-51); MEAN CORPUSCULAR HEMOGLOBIN 32.5 PG (27.0-31.0); MEAN CORPUSCULAR HGB CONC 34.9 g/dL (33.0-36.5); MEAN PLATELET VOLUME 8.4 FL (7.4-10.4); MONOCYTES # (AUTO) 0.9 X10'3 (0-0.9); MONOCYTES % (AUTO) 5.9 % (2-12); NEUTROPHILS # (AUTO) 12.8 X10'3 (1.8-7.7); NEUTROPHILS % (AUTO) 87.9 % (42-75); PLATELET COUNT 201 X10'3 (140-440); RED BLOOD COUNT 4.57 X10'6 (4.70-6.10); RED CELL DISTRIBUTION WIDTH 12.5 % (11.5-14.5); WHITE BLOOD COUNT 14.6 X10'3 (4.5-11.0)
[2024-09-27 18:45] LABS: ALANINE AMINOTRANSFERASE 42 U/L (12-78); ALBUMIN 3.3 G/DL (3.4-5.0); ALBUMIN/GLOBULIN RATIO 0.8 (1.1-1.5); ALKALINE PHOSPHATASE 84 IU/L (46-116); ANION GAP 10 (8-16); ASPARTATE AMINO TRANSFERASE 34 U/L (10-37); BILIRUBIN,TOTAL 1.1 MG/DL (0.1-1.0); BLOOD UREA NITROGEN 23 MG/DL (7-18); BUN/CREATININE RATIO 11.8 (10.0-20.0); CALCIUM 8.9 MG/DL (8.5-10.1); CHLORIDE 103 MMOL/L (99-107); CREATININE 1.95 MG/DL (0.60-1.10); GLUCOSE 121 MG/DL (70-104); POTASSIUM 3.8 MMOL/L (3.5-5.1); SODIUM 137 MMOL/L (135-145); TOTAL CARBON DIOXIDE 23.9 MMOL/L (24-32); TOTAL PROTEIN 7.5 G/DL (6.4-8.2); eCRCL 58 ML/MIN; eGFR 37 ML/MIN
[2024-09-27] MEDS: ceFAZolin 2gm in dextrose, iso 50 ML IV ONE (19:05)
[2024-09-27] MEDS ORDERED: CLIN150C2 PO (20:09)
[2024-09-27] MEDS ORDERED: CEPH-585 PO (20:09)
[2024-09-27 20:18] VITALS: BP 106/55; PULSE 89; RESP 18; TEMP 97.7; O2SAT 99
== END 2024-09-27 20:20 | disposition home or self-care (01) ==
LOC: ER 16:30
DX: L03.116 Cellulitis of left lower limb (principal); J06.9 Acute upper respiratory infection, unspecified; I48.91 Unspecified atrial fibrillation; Z88.8 Allergy status to other drugs, medicaments and biological substances
CPT/HCPCS: 36415; 71046; 80053; 83605; 85025; 87040; 93005; 93971; 96361; 96365; 99285; J0690; J7030